=== PATIENT | male | born 1985 | race African-American/Black ===

== ENCOUNTER 2016-07-23 18:36 | Day surgery (SDC) | payer MEDICAID, OTHER ==
[~2016-07-23] VITALS: Ht 185.4 cm; Wt 70.3 kg
[~2016-07-23 18:36] MED LIST: CEPH500C PO; CLON0.5T3 PO; CYCL10TA9 PO; HYDR-1231 PO; IBP800T PO; NAPR-243 PO; NAPR500T3 PO; SULF-222 PO; SULF1TAB38 PO; TRAM-21 PO; TRM50T PO
--- NOTE | 2016-07-23 19:49 | ED Abdominal Pain ---
General Chief Complaint: Abdominal/GI Problems Stated Complaint: STOMACH PAIN/VOMITING Nursing Triage Note: Pt ambulatory to Ed to report N/V/D x 3 days and then awoke with umbilicus area abd pain that has worsened thru day. Reports tender abd. Sepsis Screen: No Definite Risk Source of Information: Patient Exam Limitations: No Limitations History of Present Illness Time Seen By Provider: 19:49 Initial Comments 31-year-old male patient presents to the emergency department with 3 day onset of nausea, vomiting, and diarrhea. Reports today he awoke with periumbilical pain and epigastric pain. Progressively gotten worse throughout the day. Has not eaten anything solid since yesterday. No liquids since 2 hours prior to arrival. Timing/Duration: 2-3 Days, Getting Worse Severity/Quality: Aching, Sharp Location: Periumbilical Radiation: Epigastric Activities at Onset: None Modifying Factors: Worsens With Movement, Worsens With Palpation Allergies and Home Medications Allergies Coded Allergies: No Known Drug Allergies (Unverified , 05/31/10) Home Medications Cyclobenzaprine HCl 10 Mg Tablet, 10 MG PO Q8H, #10 Prescribed by: SHERRILL BENAVIDES on 08/17/152026 Docusate Sodium 100 Mg Capsule, 100 MG PO DAILY, #60 Prescribed by: LORRAINE PEÑALOZA on 07/24/16812 Hydrocodone/Acetaminophen 1 Each Tablet, 1 EA PO Q4-6HR PRN for PAIN-MODERATE TO SEVERE, #30 Ref 0 Prescribed by: LORRAINE PEÑALOZA on 07/24/16812 Naproxen 500 Mg Tablet, 500 MG PO BID, #20 Prescribed by: SHERRILL BENAVIDES on 08/17/152020 Review of Systems Constitutional: chills, No fever, malaise EENTM: No Symptoms Reported Respiratory: No Symptoms Reported Cardiovascular: No Symptoms Reported Gastrointestinal: See HPI, Abdominal Pain, Denies Blood Streaked Stools, Diarrhea, Nausea, Poor Appetite, Poor Fluid Intake, Denies Rectal Bleeding, Vomiting Genitourinary: Denies Burning, Denies Frequency, Denies Flank Pain, Denies Hematuria Musculoskeletal: no symptoms reported Skin: no symptoms reported Psychiatric/Neurological: No Symptoms Reported All Other Systems Reviewed Negative Unless Noted: Yes (Negative excepted noted.) Past Rncjlmo-Jdijno-Dkedhr Hx Patient Social History Alcohol Use: Occasionally Uses Recreational Drug Use: No Smoking Status: Current Everyday Smoker Type Used: Cigarettes Recent Foreign Travel: No Contact w/Someone Who Travel: No Recent Infectious Disease Expo: No Recent Hopitalizations: No Immunizations Up To Date Tetanus Booster (TDap): Less than 5yrs Seasonal Allergies Seasonal Allergies: No Surgeries HX Surgeries: Yes (LEFT THYROGLOSSAL DUCT CYST SURGERY. FOREIGN BODY REMOVAL LEFT FOOT.) Surgeries: Orthopedic Respiratory Hx Respiratory Disorders: No Cardiovascular Hx Cardiac Disorders: No Neurological Hx Neurological Disorders: No Reproductive System Hx Reproductive Disorders: No Sexually Transmitted Disease: No Genitourinary Hx Genitourinary Disorders: No Gastrointestinal Hx Gastrointestinal Disorders: No Musculoskeletal Hx Musculoskeletal Disorders: Yes (FOREIGN BODY REMOVAL LEFT FOOT) Endocrine Hx Endocrine Disorders: No HEENT HX ENT Disorders: Yes (LEFT THYROGLOSSAL DUCT CYST) Cancer Hx Cancer: No Psychosocial Hx Psychiatric Problems: No Integumentary HX Skin/Integumentary Disorder: No Blood Transfusions Hx Blood Disorders: No Reviewed Nursing Assessment Reviewed/Agree w Nursing PMH: Yes Family Medical History Significant Family History: No Pertinent Family Hx Physical Exam Vital Signs VS - Last 72 Hours, by Label 07/23/16 07/23/16 19:13 20:08 Temp 98.6 98.6 Pulse 67 Resp 20 B/P (MAP) 132/81 Pulse Ox 99 O2 Delivery Room Air Capillary Refill : Less Than 3 Seconds General Appearance: WD/WN, no apparent distress HEENT: PERRL/EOMI, pharynx normal Neck: supple, normal inspection Respiratory: lungs clear, normal breath sounds, no respiratory distress Cardiovascular: normal peripheral pulses, regular rate, rhythm, no edema, no murmur Gastrointestinal: soft, no organomegaly, abnormal bowel sounds (hypoactive bowel sounds), distended (mildly distended), guarding (right upper quadrant and supraumbilical), No rebound, tenderness (generalized tenderness with greatest tenderness supraumbilical and right upper quadrant), No mass Extremities: no pedal edema, normal capillary refill Back: normal inspection, no CVA tenderness Neurologic/Psychiatric: alert, normal mood/affect, oriented x 3 Skin: normal color, warm/dry Progress/Results/Core Measures Results/Orders Lab Results Laboratory Tests Test 07/23/16 19:17 Range/Units White Blood Count 14.6 H 4.3-11.0 10^3/uL Red Blood Count 4.71 4.35-5.85 10^6/uL Hemoglobin 15.5 13.3-17.7 G/DL Hematocrit 44 40-54 % Mean Corpuscular Volume 92 80-99 FL Mean Corpuscular Hemoglobin 33 25-34 PG Mean Corpuscular Hemoglobin Concent 36 32-36 G/DL Red Cell Distribution Width 11.8 10.0-14.5 % Platelet Count 132 130-400 10^3/uL Mean Platelet Volume 12.3 H 7.4-10.4 FL Neutrophils (%) (Auto) 86 H 42-75 % Lymphocytes (%) (Auto) 7 L 12-44 % Monocytes (%) (Auto) 7 0-12 % Eosinophils (%) (Auto) 0 0-10 % Basophils (%) (Auto) 0 0-10 % Neutrophils # (Auto) 12.5 H 1.8-7.8 X 10^3 Lymphocytes # (Auto) 1.0 1.0-4.0 X 10^3 Monocytes # (Auto) 1.1 H 0.0-1.0 X 10^3 Eosinophils # (Auto) 0.0 0.0-0.3 10^3/uL Basophils # (Auto) 0.0 0.0-0.1 10^3/uL Neutrophils % (Manual) 76 % Lymphocytes % (Manual) 11 % Monocytes % (Manual) 9 % Eosinophils % (Manual) 0 % Basophils % (Manual) 1 % Band Neutrophils 3 % Blood Morphology Comment NORMAL Urine Color YELLOW Urine Clarity CLEAR Urine pH 5 5-9 Urine Specific [place] 1.015 L 1.016-1.022 Urine Protein NEGATIVE NEGATIVE Urine Glucose (UA) NEGATIVE NEGATIVE Urine Ketones 3+ H NEGATIVE Urine Nitrite NEGATIVE NEGATIVE Urine Bilirubin NEGATIVE NEGATIVE Urine Urobilinogen NORMAL NORMAL MG/DL Urine Leukocyte Esterase NEGATIVE NEGATIVE Urine RBC (Auto) NEGATIVE NEGATIVE Urine RBC RARE /HPF Urine WBC NONE /HPF Urine Crystals NONE /LPF Urine Bacteria NONE /HPF Urine Casts NONE /LPF Urine Mucus NEGATIVE /LPF Urine Culture Indicated NO Sodium Level 137 135-145 MMOL/L Potassium Level 3.8 3.6-5.0 MMOL/L Chloride Level 103 98-107 MMOL/L Carbon Dioxide Level 23 21-32 MMOL/L Anion Gap 11 5-14 MMOL/L Blood Urea Nitrogen 8 7-18 MG/DL Creatinine 0.92 0.60-1.30 MG/DL Estimat Glomerular Filtration Rate > 60 BUN/Creatinine Ratio 9 Glucose Level 84 70-105 MG/DL Calcium Level 9.0 8.5-10.1 MG/DL Total Bilirubin 1.1 H 0.1-1.0 MG/DL Aspartate Amino Transf (AST/SGOT) 20 5-34 U/L Alanine Aminotransferase (ALT/SGPT) 13 0-55 U/L Alkaline Phosphatase 72 40-136 U/L Total Protein 6.7 6.4-8.2 G/DL Albumin 4.3 3.2-4.5 G/DL Lipase 9 8-78 U/L My Orders Orders - ANMOL PACK Cbc With Automated Diff (07/23/16 19:47) Comprehensive Metabolic Panel (07/23/16 19:47) Lipase (07/23/16 19:47) Ua Culture If Indicated (07/23/16 19:47) Saline Lock/Iv-Start (07/23/16 19:47) Manual Differential (07/23/16:17) Ct Abdomen/Pelvis W (07/23/16 19:56) Ketorolac Injection (Toradol Injection) (07/23/16 19:56) Ondansetron Injection (Zofran Injectio (07/23/16 20:00) Famotidine Injection (Pepcid Injection) (07/23/16 19:56) Ns Iv 1000 Ml (Sodium Chloride 0.9%) (07/23/16 19:56) Iohexol Injection (Omnipaque 350 Mg/Ml 1 (07/23/16 20:15) Ns (Ivpb) (Sodium Chloride 0.9% Ivpb Bag (07/23/16 20:15) Medications Given in ED Vital Signs/I&O Vital Sign - Last 12Hours 07/23/16 07/23/16 19:13 20:08 Temp 98.6 98.6 Pulse 67 Resp 20 B/P (MAP) 132/81 Pulse Ox 99 O2 Delivery Room Air Intake and Output 07/24/16 00:00 Intake Total 1000 ml Balance 1000 ml Blood Pressure Mean: 98 Diagnostic Imaging Diagonstic Imaging: CT Plain Films/CT/US/NM/MRI: abdomen, pelvis Comments CT ABDOMEN/PELVIS W Clinical indication: Patient with right-sided abdominal pain with nausea and vomiting x3 days. Exam: CT exam of the abdomen and pelvis is performed with 100 cc of Omnipaque 350 IV contrast and oral contrast. Portal venous and delayed phase were obtained. Coronal reformatted images were created. Comparisons: CT scan abdomen and pelvis with contrast dated 09/01/2007. Findings: Visualized lung bases: Unremarkable. Liver: Unremarkable. Gallbladder : Unremarkable. Pancreas: Unremarkable. Spleen: Unremarkable. Adrenal glands: Unremarkable. Kidneys/ ureters: There is a 7 mm circumscribed low-density lesion involving the lateral cortex of the mid left kidney likely representing a cyst. Aorta: Unremarkable. Intraabdominal/ retroperitoneal contents: Unremarkable. There is no intra-abdominal free air or free fluid. Intestines: Unremarkable. Appendix: There is interval enlargement of the appendix seen in the mid to high right pelvis region which is just superior and lateral to the region of the bladder. The appendix measures 12 mm in greatest width. This is best seen on axial images series 2, images 16 through 64. This is also well seen on the coronal sequence series 4, images 23 through 34. There is mild adjacent fat stranding. There is no evidence of abscess. Bladder: Unremarkable. Pelvic organs: Unremarkable. Extra abdominal/ pelvis regions: Unremarkable. Abdominal wall: Unremarkable. Bones: Unremarkable. Impression: 1: Findings concerning for interval acute appendicitis. There is no evidence of intra- abdominal free air or abscess. 2: Likely left renal cyst. Results of this report discussed with Dr. Chin via the telephone on 07/23/2016 at 2055 hrs. Dictated on workstation # [id number] Reviewed: Reviewed by Me (radiology report reviewed by me) Departure Communication Time/Spoke to Admitting Phy: 21:[address] Arce graciously accepts patient to his surgical service for laparoscopic appendectomy. Progress Notes Laboratory findings, diagnostic study findings, and plan for admission for lap appy discussed with the patient. Patient voices understanding and agrees with the treatment plan. Patient case discussed with Dr. Chin, he agrees with the treatment plan. Impression Impression: Primary Impression: Acute appendicitis Qualified Codes: K35.80 - Unspecified acute appendicitis Disposition: ADMITTED INPATIENT Condition: Stable Decision to Admit Reason: Admit from ER (General) Decision to Admit/Date: July 23, 2016 Time/Decision to Admit Time: 21:10 Departure-Patient Inst. Referrals: NO,LOCAL PHYSICIAN (PCP/Family) Primary Care Physician Scripts Hydrocodone/Acetaminophen (Hydrocodon -Acetaminophen 5-325) 1 Each Tablet 1 EA PO Q4-6HR Y for PAIN-MODERATE TO SEVERE, #30 TAB 0 Refills Prov: LORRAINE GALLAGHER APRN 07/24/16 Docusate Sodium (Colace) 100 Mg Capsule 100 MG PO DAILY, #60 CAP Prov: LORRAINE GALLAGHER APRN 07/24/16 ANMOL PACK July 23, 2016 19:49
[2016-07-23 19:54] LABS: BASOPHILS % (AUTO) 0 % (0-10); BILIRUBIN,URINE NEGATIVE (NEGATIVE); EOSINOPHILS % (AUTO) 0 % (0-10); KETONES,URINE 3+ (NEGATIVE); LEUKOCYTE ESTERASE ,URINE NEGATIVE (NEGATIVE); LYMPHOCYTES % (AUTO) 7 % (12-44); MEAN CORPUSCULAR HEMOGLOBIN 33 PG (25-34); MEAN CORPUSCULAR HGB CONC 36 G/DL (32-36); MEAN CORPUSCULAR VOLUME 92 FL (80-99); MEAN PLATELET VOLUME 12.3 FL (7.4-10.4); MONOCYTES # (AUTO) 1.1 X 10^3 (0.0-1.0); MONOCYTES % (AUTO) 7 % (0-12); NEUTROPHILS # (AUTO) 12.5 X 10^3 (1.8-7.8); NEUTROPHILS % (AUTO) 86 % (42-75); NITRITE,URINE NEGATIVE (NEGATIVE); PH,URINE 5 (5-9); PLATELET COUNT 132 10^3/uL (130-400); PROTEIN,URINE NEGATIVE (NEGATIVE); RED BLOOD COUNT 4.71 10^6/uL (4.35-5.85); RED CELL DISTRIBUTION WIDTH 11.8 % (10.0-14.5); UROBILINOGEN,URINE NORMAL (NORMAL); WHITE BLOOD COUNT 14.6 10^3/uL (4.3-11.0)
[2016-07-23] MEDS ORDERED: NS IV 1000 ML 1,000 ML IV ONE (19:56)
[2016-07-23] MEDS ORDERED: FAMOTIDINE 20MG/2ML IV (PEPCID) IV STA (19:56)
[2016-07-23] MEDS ORDERED: KETOROLAC 30 MG/ML VIAL IVP STA (19:56)
[2016-07-23] MEDS ORDERED: ONDANSETRON 4 MG/2 ML (SDV) Z0FRAN IVP ONE (20:00)
[2016-07-23 20:07] LABS: ALANINE AMINOTRANSFERASE 13 U/L (0-55); ALBUMIN 4.3 G/DL (3.2-4.5); ANION GAP 11 MMOL/L (5-14); ASPARTATE AMINO TRANSFERASE 20 U/L (5-34); BILIRUBIN,TOTAL 1.1 MG/DL (0.1-1.0); BLOOD UREA NITROGEN 8 MG/DL (7-18); BUN/CREATININE RATIO 9; CARBON DIOXIDE 23 MMOL/L (21-32); CHLORIDE 103 MMOL/L (98-107); CREATININE SERUM 0.92 MG/DL (0.60-1.30); GFR ESTIMATED > 60; GLUCOSE 84 MG/DL (70-105); POTASSIUM 3.8 MMOL/L (3.6-5.0); SODIUM 137 MMOL/L (135-145); TOTAL PROTEIN 6.7 G/DL (6.4-8.2)
[2016-07-23 20:12] LABS: BAND NEUTROPHILS 3 %; BASOPHILS % (MANUAL) 1 %; EOSINOPHILS % (MANUAL) 0 %; LYMPHOCYTES % (MANUAL) 11 %; NEUTROPHILS % (MANUAL) 76 %
[2016-07-23] MEDS ORDERED: NS 100 ML (IVPB) BAG IV ONE (20:15)
[2016-07-23] MEDS ORDERED: IOHEXOL 350 MG/ML 100 ML (OMNIPAQUE 350) VIAL IV ONE (20:15)
[2016-07-23 20:23] LABS: LIPASE 9 U/L (8-78)
--- NOTE | 2016-07-23 21:01 | Diagnostic Imaging Report ---
Clinical indication: Patient with right-sided abdominal pain with nausea and vomiting x3 days. Exam: CT exam of the abdomen and pelvis is performed with 100 cc of Omnipaque 350 IV contrast and oral contrast. Portal venous and delayed phase were obtained. Coronal reformatted images were created. Comparisons: CT scan abdomen and pelvis with contrast dated 09/01/2007. Findings: Visualized lung bases: Unremarkable. Liver: Unremarkable. Gallbladder: Unremarkable. Pancreas: Unremarkable. Spleen: Unremarkable. Adrenal glands: Unremarkable. Kidneys/ ureters: There is a 7 mm circumscribed low-density lesion involving the lateral cortex of the mid left kidney likely representing a cyst. Aorta: Unremarkable. Intraabdominal/ retroperitoneal contents: Unremarkable. There is no intra-abdominal free air or free fluid. Intestines: Unremarkable. Appendix: There is interval enlargement of the appendix seen in the mid to high right pelvis region which is just superior and lateral to the region of the bladder. The appendix measures 12 mm in greatest width. This is best seen on axial images series 2, images 16 through 64. This is also well seen on the coronal sequence series 4, images 23 through 34. There is mild adjacent fat stranding. There is no evidence of abscess. Bladder: Unremarkable. Pelvic organs: Unremarkable. Extra abdominal/ pelvis regions: Unremarkable. Abdominal wall: Unremarkable. Bones: Unremarkable. Impression: 1: Findings concerning for interval acute appendicitis. There is no evidence of intra-abdominal free air or abscess. 2: Likely left renal cyst. Results of this report discussed with Dr. Chin via the telephone on 07/23/2016 at 2055 hrs. Dictated by: Dictated on workstation # [id number]
--- NOTE | 2016-07-23 21:55 | History & Physical-Surgical ---
History of Present Illness History of Present Illness Reason for visit/HPI CC: Abdominal pain 31 year old male having abdominal pain for about 2 days. Patient states pain started around umbilicus and now moved to right lower quadrant. Movement makes pain worse, and nothing really making pain better. Patient was having nausea and emesis. Had some chills. Denies fever sweats shortness of breath or chest pain. Patient with elevated wbc and ct scans suggestive of appendicitis. Date of Admission I consulted on this patient on 07/23/16 21:50 Attending Physician Admitting Physician No,Local Physician Consult Allergies and Home Medications Allergies Coded Allergies: No Known Drug Allergies (Unverified , 05/31/10) Home Medications Cyclobenzaprine HCl 10 Mg Tablet, 10 MG PO Q8H, #10 Prescribed by: SHERRILL BENAVIDES on 08/17/152026 Naproxen 500 Mg Tablet, 500 MG PO BID, #20 Prescribed by: SHERRILL BENAVIDES on 08/17/152020 Past Hkuilvv-Mudtev-Akzdqk Hx Patient Social History Alcohol Use: Occasionally Uses Recreational Drug Use: No Smoking Status: Current Everyday Smoker Type Used: Cigarettes Recent Foreign Travel: No Contact w/Someone Who Travel: No Recent Infectious Disease Expo: No Recent Hopitalizations: No Immunizations Up To Date Tetanus Booster (TDap): Less than 5yrs Seasonal Allergies Seasonal Allergies: No Surgeries HX Surgeries: Yes (LEFT THYROGLOSSAL DUCT CYST SURGERY. FOREIGN BODY REMOVAL LEFT FOOT.) Surgeries: Orthopedic Respiratory Hx Respiratory Disorders: No Cardiovascular Hx Cardiac Disorders: No Neurological Hx Neurological Disorders: No Reproductive System Hx Reproductive Disorders: No Sexually Transmitted Disease: No Genitourinary Hx Genitourinary Disorders: No Gastrointestinal Hx Gastrointestinal Disorders: No Musculoskeletal Hx Musculoskeletal Disorders: Yes (FOREIGN BODY REMOVAL LEFT FOOT) Endocrine Hx Endocrine Disorders: No HEENT HX ENT Disorders: Yes (LEFT THYROGLOSSAL DUCT CYST) Cancer Hx Cancer: No Psychosocial Hx Psychiatric Problems: No Integumentary HX Skin/Integumentary Disorder: No Blood Transfusions Hx Blood Disorders: No Reviewed Nursing Assessment Reviewed/Agree w Nursing PMH: Yes Family Medical History Significant Family History: No Pertinent Family Hx Constitutional: see HPI EENTM: no symptoms reported Respiratory: no symptoms reported Cardiovascular: no symptoms reported Gastrointestinal: see HPI Genitourinary: no symptoms reported Musculoskeletal: no symptoms reported Skin: no symptoms reported Psychiatric/Neurological: No Symptoms Reported Physical Exam Vital Signs Vital Sign - Last 12Hours 07/23/16 19:13 Temp 98.6 Pulse 67 Resp 20 B/P (MAP) 132/81 Pulse Ox 99 O2 Delivery Room Air Capillary Refill : Less Than 3 Seconds General Appearance: WD/WN (laying in bed) HEENT: PERRL/EOMI, Normal ENT Inspection Neck: Non Tender, Supple Respiratory: No Accessory Muscle Use, No Respiratory Distress Cardiovascular: Regular Rate, Rhythm Gastrointestinal: Tenderness (right lower quadrant no palpable mass voluntary guarding) Rectal: Deferred Back: No CVA Tenderness Extremity: Non Tender Neurologic/Psychiatric: Alert, Oriented x3, No Motor/Sensory Deficits, Normal Mood/Affect, woven label designer II-XII Norm as Tested Skin: Warm/Dry Data Review Labs Laboratory Tests 07/23/16 19:17: White Blood Count 14.6H, Red Blood Count 4.71, Hemoglobin 15.5, Hematocrit 44, Mean Corpuscular Volume 92, Mean Corpuscular Hemoglobin 33, Mean Corpuscular Hemoglobin Concent 36, Red Cell Distribution Width 11.8, Platelet Count 132, Mean Platelet Volume 12.3H, Neutrophils (%) (Auto) 86H, Lymphocytes (%) (Auto) 7L, Monocytes (%) (Auto) 7, Eosinophils (%) (Auto) 0, Basophils (%) (Auto) 0, Neutrophils # (Auto) 12.5H, Lymphocytes # (Auto) 1.0, Monocytes # (Auto) 1.1H, Eosinophils # (Auto) 0.0, Basophils # (Auto) 0.0, Neutrophils % (Manual) 76, Lymphocytes % (Manual) 11, Monocytes % (Manual) 9, Eosinophils % (Manual) 0, Basophils % (Manual) 1, Band Neutrophils 3, Blood Morphology Comment NORMAL, Urine Color YELLOW, Urine Clarity CLEAR, Urine pH 5, Urine Specific [place] 1.015L, Urine Protein NEGATIVE, Urine Glucose (UA) NEGATIVE, Urine Ketones 3+H, Urine Nitrite NEGATIVE, Urine Bilirubin NEGATIVE, Urine Urobilinogen NORMAL, Urine Leukocyte Esterase NEGATIVE, Urine RBC (Auto) NEGATIVE, Urine RBC RARE, Urine WBC NONE, Urine Crystals NONE, Urine Bacteria NONE, Urine Casts NONE, Urine Mucus NEGATIVE, Urine Culture Indicated NO, Sodium Level 137, Potassium Level 3.8, Chloride Level 103, Carbon Dioxide Level 23, Anion Gap 11, Blood Urea Nitrogen 8, Creatinine 0.92, Estimat Glomerular Filtration Rate > 60, BUN/ Creatinine Ratio 9, Glucose Level 84, Calcium Level 9.0, Total Bilirubin 1.1H, Aspartate Amino Transf (AST/SGOT) 20, Alanine Aminotransferase (ALT/SGPT) 13, Alkaline Phosphatase 72, Total Protein 6.7, Albumin 4.3, Lipase 9 Assessment/Plan Assessment/Plan Assessment/Plan right lower quadrant abdominal pain. acute appendicitis patient physical exam and ct scan consistent with appendicitis he was explained risks and benefits of laparoscopic appendectomy possible open all other indicated procedures and understands risks and benefits. He wishes to proceed with procedure NPO IV fluids SANTA Walden DO July 23, 2016 21:55
[2016-07-23] MEDS ORDERED: morphine INJ 10 MG/ML 1ML (SYR OR VIAL) IV PRN (22:00)
[2016-07-23] MEDS ORDERED: PIPERACILLIN/TAZO 4.5 GM VIAL (ZOSYN) IV ONE ×2 (22:34→22:35)
[2016-07-23] MEDS ORDERED: NS (IVPB) 100 ML ONE (22:35)
[2016-07-23] MEDS: PIPERACILLIN SODIUM/TAZOBACTAM 4.5 GM in NS (IVPB) 100 ML IV SCH (22:42)
[2016-07-23] MEDS ORDERED: proPOfol 200 MG/20 ML (DIPRIVAN) VIAL IV ONE (22:50)
[2016-07-23] MEDS ORDERED: ONDANSETRON 4 MG/2 ML (SDV) Z0FRAN ONE (22:50)
[2016-07-23] MEDS ORDERED: SUCCINYLCHOLINE INJ 100 MG/5 ML SYR ONE (22:50)
[2016-07-23] MEDS ORDERED: MIDAZOLAM 2 MG/2 ML (VERSED) VIAL ONE (22:50)
[2016-07-23] MEDS ORDERED: SEVOFLURANE (ULTANE) 15 ML INHAL SOLN ONE ×3 (22:50→23:35)
[2016-07-23] MEDS ORDERED: LIDOCAINE 1% INJ 20 ML (XYLOCAINE) VIAL ONE (22:50)
[2016-07-23] MEDS ORDERED: DEXAMETHASONE PF 10 MG/ML (DECADRON) VIAL ONE (22:50)
[2016-07-23] MEDS ORDERED: BUPIVACAINE 0.5% 30 ML (SENSORCAINE) VIAL ONE (22:50)
[2016-07-23] MEDS ORDERED: ROCURONIUM 50 MG/5 ML (ZEMURON) VIAL IV ONE (22:50)
[2016-07-23] MEDS ORDERED: LIDOCAINE PF 2% 10 ML (XYLOCAINE) AMP ONE (22:50)
[2016-07-23] MEDS ORDERED: fentaNYL INJECTION 100 MCG/2 ML AMP ONE ×2 (22:50→23:13)
[2016-07-23] MEDS ORDERED: GLYCOPYRROLATE 0.2 MG/ML (ROBINUL) 2 ML VIAL ONE (23:34)
[2016-07-23] MEDS ORDERED: LACTATED RINGERS 1,000 ML IV ONE (23:34)
[2016-07-23] MEDS ORDERED: NEOSTIGMINE (BLOXIVERZ ) 1 MG/1ML 10 ML VIAL ONE (23:34)
[2016-07-24] MEDS ORDERED: morphine INJ 4 MG/ML 1 ML (VIAL/SYRINGE) IVP PRN ×2 (00:20→01:00)
[2016-07-24] MEDS ORDERED: morphine INJ 4 MG/ML 1 ML (VIAL/SYRINGE) ONE ×2 (00:20→00:49)
[2016-07-24] MEDS ORDERED: ONDANSETRON 4 MG/2 ML (SDV) Z0FRAN IVP ONE (00:20)
[2016-07-24] MEDS ORDERED: ONDANSETRON 4 MG/2 ML (SDV) Z0FRAN ONE (00:21)
[2016-07-24 01:25] VITALS: BP 126/77
[2016-07-24] MEDS ORDERED: LACTATED RINGERS 1,000 ML IV ONE (02:20)
[2016-07-24] MEDS: LACTATED RINGERS 1,000 ML IV SCH ×2 (02:43→06:26)
[2016-07-24 04:44] VITALS: BP 129/72
[2016-07-24] MEDS ORDERED: PIPERACILLIN/TAZO 4.5 GM VIAL (ZOSYN) IV ONE ×2 (05:02→05:49)
[2016-07-24] MEDS ORDERED: NS (IVPB) 100 ML ONE (05:50)
[2016-07-24] MEDS ORDERED: HYDROcodone/APAP 5 MG/325 MG (LORTAB) TAB ONE (05:52)
[2016-07-24] MEDS: HYDROcodone/APAP 5 MG/325 MG (LORTAB) TAB PO PRN ×2 (05:56→10:03)
[2016-07-24] MEDS: PIPERACILLIN SODIUM/TAZOBACTAM 4.5 GM in NS (IVPB) 100 ML IV SCH (05:56)
[2016-07-24 07:55] VITALS: BP 121/78
[2016-07-24] MEDS ORDERED: DOCU-143 PO (08:13)
[2016-07-24] MEDS ORDERED: HYDR-3812 PO (08:13)
--- NOTE | 2016-07-24 08:15 | Discharge Inst-Simple/Standard ---
Discharge Inst-Standard Discharge Medications New, Converted or Re-Newed RX: RX on Chart Patient Instructions/Follow Up Plan of Care/Instructions/FU: Follow up with Dr. Arce in 2 weeks Follow instructions as directed. Activity as Tolerated: No Discharge Diet: No Restrictions Other Inst to Patient Follow up Appt: Make appointment for 2 weeks. Instructions: No lifting greater than 10 pounds. No strenuous activity. May shower in 24 hours, no tub bath or soaking. Use incentive spirometer at home as directed. No Smoking Skin/Wound Care: May remove bandages. You need to leave the white strips over incision on they will fall off on their own. Symptoms to Report: Appetite Changes, Extremity Discoloration, Numbness/Tingling, Swelling Increased , Bleeding Excessive, Eyesight Changes, Pain Increased, Urine Color Change, Constipation(Persistent), Fever over 101 degree F, Pain/Pressure in chest, Urinating Difficulty, Cough Up/Vomit Blood, Heart Beat Irreg/Pounding, Pain/ Pressure in jaw, Vaginal Bleeding Increase, Cramps in feet or legs, Lightheadedness, Pain/Pressure in shoulder, Diarrhea(Persistent), Memory Changes Suddenly, Questions/Concerns, Weight gain consecutive days, Dizziness/ Fainting, Nausea/Vomiting, Shortness of Breath, Weight gain over 2 pounds If questions or concerns contact your physician Or seek help at emergency department. LORRAINE GALLAGHER APRN July 24, 2016 08:15
--- NOTE | 2016-07-24 09:10 | Progress Note ---
Objective Exam Vital Signs Date Time Temp Pulse Resp B/P (MAP) Pulse Ox O2 Delivery O2 Flow Rate FiO2 07/24/16 07:55 98.7 74 20 121/78 96 07/24/16 04:44 98.5 67 20 129/72 97 07/24/16 01:25 98.0 64 16 126/77 98 07/23/16 22:42 98.6 77 20 99 07/23/16 20:08 98.6 07/23/16 19:13 98.6 67 20 132/81 99 Room Air I & O 07/24/16 07:00 Intake Total 1700 ml Output Total 400 ml Balance 1300 ml Capillary Refill : Less Than 3 Seconds General Appearance: WD/WN (laying in bed) HEENT: PERRL/EOMI, Normal ENT Inspection Neck: Non Tender, Supple Respiratory: No Accessory Muscle Use, No Respiratory Distress Cardiovascular: Regular Rate, Rhythm Gastrointestinal: soft, tenderness (around incision sites. ) Extremity: Non Tender Neurologic/Psychiatric: Alert, Oriented x3, Normal Mood/Affect Skin: Normal Color, Warm/Dry Results Lab Laboratory Tests 07/23/16 19:17: White Blood Count 14.6H, Red Blood Count 4.71, Hemoglobin 15.5, Hematocrit 44, Mean Corpuscular Volume 92, Mean Corpuscular Hemoglobin 33, Mean Corpuscular Hemoglobin Concent 36, Red Cell Distribution Width 11.8, Platelet Count 132, Mean Platelet Volume 12.3H, Neutrophils (%) (Auto) 86H, Lymphocytes (%) (Auto) 7L, Monocytes (%) (Auto) 7, Eosinophils (%) (Auto) 0, Basophils (%) (Auto) 0, Neutrophils # (Auto) 12.5H, Lymphocytes # (Auto) 1.0, Monocytes # (Auto) 1.1H, Eosinophils # (Auto) 0.0, Basophils # (Auto) 0.0, Neutrophils % (Manual) 76, Lymphocytes % (Manual) 11, Monocytes % (Manual) 9, Eosinophils % (Manual) 0, Basophils % (Manual) 1, Band Neutrophils 3, Blood Morphology Comment NORMAL, Urine Color YELLOW, Urine Clarity CLEAR, Urine pH 5, Urine Specific [place] 1.015L, Urine Protein NEGATIVE, Urine Glucose (UA) NEGATIVE, Urine Ketones 3+H, Urine Nitrite NEGATIVE, Urine Bilirubin NEGATIVE, Urine Urobilinogen NORMAL, Urine Leukocyte Esterase NEGATIVE, Urine RBC (Auto) NEGATIVE, Urine RBC RARE, Urine WBC NONE, Urine Crystals NONE, Urine Bacteria NONE, Urine Casts NONE, Urine Mucus NEGATIVE, Urine Culture Indicated NO, Sodium Level 137, Potassium Level 3.8, Chloride Level 103, Carbon Dioxide Level 23, Anion Gap 11, Blood Urea Nitrogen 8, Creatinine 0.92, Estimat Glomerular Filtration Rate > 60, BUN/ Creatinine Ratio 9, Glucose Level 84, Calcium Level 9.0, Total Bilirubin 1.1H, Aspartate Amino Transf (AST/SGOT) 20, Alanine Aminotransferase (ALT/SGPT) 13, Alkaline Phosphatase 72, Total Protein 6.7, Albumin 4.3, Lipase 9 Assessment/Plan Assessment/Plan Assessment/Plan S/P laparoscopic appendectomy. Claude- Patient feeling well. Pain controlled. Tolerating diet. Denies n/v fever sweats chills shortness of breath or chest pain. general no acute distress heart reg lungs nonlabored abdomen soft nondistended nontender incisions c/d/i ext nontender rlq abdominal pain, appendicitis s/p laparoscopic appendectomy doing well, okay to ne home today f/u in approximately 2 weeks. discussed not driving on narcotics advance diet as tolerates. any issues to return to be re-evaluated Final Diagnosis rlq abdominal pain acute appendicitis s/p laparoscopic appendectomy Clinical Quality Measures DVT/VTE Risk/Contraindication: Risk Factor Score Per Nursin RFS Level Per Nursing on Admit: 3=High Physician Assessment Physician Assessment S/P Laparoscopic appendectomy LORRAINE GALLAGHER APRN July 24, 2016 09:10 SANTA VENTURA DO July 24, 2016 17:25
[2016-07-24 10:45] VITALS: BP 121/78
--- NOTE | 2016-07-25 13:23 | OPERATIVE REPORT ---
DATE OF SERVICE: 07/23/2016 PREOPERATIVE DIAGNOSIS: Acute appendicitis. POSTOPERATIVE DIAGNOSIS: Acute appendicitis. PROCEDURE: Laparoscopic appendectomy. SURGEON: Santa Arce DO ANESTHESIA: General. ESTIMATED BLOOD LOSS: Minimal. COMPLICATIONS: None. INDICATION: The patient is a 31-year-old male who had been having abdominal pain that then became more localized to the right lower quadrant. He had an elevated white count and his CT scan was suggestive of appendicitis. His physical exam was consistent with appendicitis. He understands risks and benefits of procedure and wished to proceed with the procedure. Consent was signed in the chart. PROCEDURE IN DETAIL: The patient was taken to the operating suite, was prepped and draped in sterile fashion. Surgical pause was performed. The 5-mm incision was made at the umbilicus. Kochers were used to dissect down the fascia, grasped and elevated. A Veress needle was inserted in the abdomen and pneumoperitoneum was achieved. Under direct visualization of the laparoscope, a 5-mm trocar was then placed. Under direct visualization of the laparoscope, 5-mm trocars were placed at the suprapubic region and 4-mm trocar was placed in the left lower quadrant. The appendix was found on the pelvis. It was dilated, inflamed and rigid. It was grasped, elevated. A window was created at the base of the appendix using a [place]. An Endo-CLIFFORD 2.5 stapler was then fired across the base of the appendix. An Endo-CLIFFORD 2.0 reload was then fired across the mesoappendix removing the specimen. Staple lines were intact. The appendix was placed in an Endobag and removed through the 12-mm trocar site. The abdomen was then irrigated with copious amounts of irrigation. Hemostasis had been achieved. The 12-mm fascial defect was then closed using 0 Vicryl with an Endoclose the trocar was removed. The abdomen was then desufflated, all the trocars were removed. A 0.5% Marcaine and 1% lidocaine in 50:50 ratio was used to anesthetize the trocar sites. Skin was then closed using 4-0 Vicryl in a subcuticular fashion. The area was washed and dried. Mastisol and Steri-Strips were applied. Sterile bandages were applied. The patient tolerated the procedure well without any complications and taken to the recovery room in stable condition. Job ID: [id number] DocumentID: [id number] Dictated Date: 07/24/2016 13:02:14 Carpet Installation Specialist Date: 07/25/2016 05:28:14 Dictated By: SANTA ARCE DO
== END 2016-07-24 10:45 | disposition home or self-care (01) ==
LOC: EDUNIT# 18:36 → ER 18:38 → SDC 22:09 → 4TH 07-24 01:23 → SDC 07-24 10:45
PROVIDERS: ATTEND Surgery
DX: K35.80 Unspecified acute appendicitis (principal); F17.210 Nicotine dependence, cigarettes, uncomplicated
CPT/HCPCS: 36415; 74177; 80053; 81000; 83690; 85007; 85027; 96374; 96375